=== PATIENT | female | born 1995 | race African-American/Black ===

== ENCOUNTER 2016-09-27 09:36 | Emergency (ER) | payer MEDICAID ==
[~2016-09-27] VITALS: Ht 157.5 cm; Wt 77.0 kg
[~2016-09-27 09:36] MED LIST: CEPH-569 PO; CEPH250C2 PO; PREN-88 PO
[2016-09-27 10:06] VITALS: BP 120/72
[2016-09-27] MEDS ORDERED: METHYLPREDNISOLONE SOD SUCC 125 MG/2 ML VIAL IM STA (11:54)
== END 2016-09-27 13:11 | disposition home or self-care (01) ==
LOC: ER 09:37
DX: J02.9 Acute pharyngitis, unspecified (principal)
CPT/HCPCS: 96372; 99283; J2930